=== PATIENT | male | born 1955 | race Caucasian/White ===

== ENCOUNTER 2024-11-01 10:08 | Emergency (ER) | payer OTHER, BC | END 2024-11-01 13:22 | disposition home or self-care (01) | LOC: MW.ED 10:08 | DX: H53.2 Diplopia (principal); E78.00 Pure hypercholesterolemia, unspecified; I10 Essential (primary) hypertension; E11.9 Type 2 diabetes mellitus without complications; Z79.899 Other long term (current) drug therapy | CPT/HCPCS: 70551; 70551-26; 99284 ==